=== PATIENT | female | born 1945 | race Asian ===

== ENCOUNTER 2019-09-21 06:10 | Day surgery (SDC) | payer MEDICARE, OTHER ==
[~2019-09-21] VITALS: Ht 149.9 cm; Wt 61.4 kg
[~2019-09-21 06:10] MED LIST: SODIUM CHLORIDE 0.9% 1,000 ML ONE
[2019-09-21] MEDS ORDERED: SODIUM CHLORIDE 0.9% 1,000 ML IV ONE (06:30)
[2019-09-21] MEDS ORDERED: ATOR40TA28 PO (07:46)
[2019-09-21] MEDS ORDERED: METF-960 PO (07:46)
[2019-09-21] MEDS ORDERED: MONT10TA21 PO (07:46)
[2019-09-21] MEDS ORDERED: GABA-531 PO (07:46)
[2019-09-21] MEDS ORDERED: OMEP20 PO (07:46)
[2019-09-21] MEDS ORDERED: BENZ-51 PO (07:46)
[2019-09-21] MEDS ORDERED: ALBU8HFA PO (07:46)
[2019-09-21] MEDS ORDERED: WARF5 PO (07:46)
[2019-09-21] MEDS ORDERED: ATEN25TA PO (07:46)
[2019-09-21] MEDS ORDERED: KDUR10 PO (07:46)
[2019-09-21] MEDS ORDERED: SITA50 PO (07:46)
[2019-09-21] MEDS ORDERED: WARF2.5 PO (07:46)
[2019-09-21] MEDS ORDERED: MECL-160 PO (07:46)
[2019-09-21] MEDS ORDERED: FentaNYL CITRATE-PF 100 MCG/2 ML VIAL ONE (08:03)
[2019-09-21] MEDS ORDERED: MIDAZOLAM HCL 2 MG/2 ML VIAL ONE (08:03)
[2019-09-21] MEDS ORDERED: MethylPREDNISolone SOD SUCC 125 MG/2 ML VIAL ONE (08:57)
[2019-09-21] MEDS ORDERED: MethylPREDNISolone SOD SUCC 125 MG/2 ML VIAL IVP ONE (09:00)
[2019-09-21] MEDS ORDERED: ALBUTEROL SULFATE 2.5 MG/0.5 ML NEB SOLUTION NEB ONE (17:24)
[2019-09-21] MEDS ORDERED: LIDOCAINE 2% 30 ML JELLY ONE (17:24)
[2019-09-21] MEDS ORDERED: BENZOCAINE 20% 50 MCG/SPRAY 57 GM ONE (17:24)
[2019-09-21] MEDS ORDERED: LIDOCAINE 4% 50 ML SOLUTION ONE (17:24)
[2019-09-21] MEDS ORDERED: OXYGEN THERAPY IH SCH (20:00)
== END 2019-09-21 10:40 | disposition home or self-care (01) ==
LOC: EDSEX 06:10 → SURGERY 06:10
PROVIDERS: ATTEND Internal Medicine Critical Care Medicine
DX: R05 Cough (principal); R91.1 Solitary pulmonary nodule; J84.9 Interstitial pulmonary disease, unspecified; J34.89 Other specified disorders of nose and nasal sinuses; J98.8 Other specified respiratory disorders; B37.0 Candidal stomatitis; J38.4 Edema of larynx; R19.09 Other intra-abdominal and pelvic swelling, mass and lump; Z79.899 Other long term (current) drug therapy
CPT/HCPCS: 31623; 31624; 71045; 87070; 87101; 87206; 87220; 88184; 88185; 93005; J2250; J2930; J3010; J7030; 87015; 87205; 88108; 88312